=== PATIENT | male | born 1970 | race Caucasian/White ===

== ENCOUNTER 2016-09-07 17:00 | Emergency (ER) | payer MEDICARE, MEDICAID | END 2016-09-07 18:54 | disposition home or self-care (01) | LOC: D.ER 17:00 | DX: S93.402A Sprain of unspecified ligament of left ankle, initial encounter (principal); W22.8XXA Striking against or struck by other objects, initial encounter; Y93.89 Activity, other specified; Y92.017 Garden or yard in single-family (private) house as the place of occurrence of the external cause ==

== ENCOUNTER 2016-09-20 12:08 | Emergency (ER) | payer MEDICARE, MEDICAID | END 2016-09-20 14:45 | disposition home or self-care (01) | LOC: D.ER 12:08 | DX: S86.911A Strain of unspecified muscle(s) and tendon(s) at lower leg level, right leg, initial encounter (principal); Y93.61 Activity, american tackle football; Y92.89 Other specified places as the place of occurrence of the external cause; I10 Essential (primary) hypertension ==

== ENCOUNTER 2019-06-19 12:26 | Inpatient (IN) | payer MEDICARE, MEDICAID ==
[~2019-06-19] VITALS: Ht 182.9 cm; Wt 112.5 kg
--- NOTE | 2019-06-19 14:25 | NUR ---
RECIEVED FROM PRIVATE CAR TO REHAB ROOM [id number];ORIENTED TO ROOM AND SURROUNDINGS.CL IN REACH.
--- NOTE | 2019-06-19 16:00 | NUR ---
REMAINS UP IN WC.DENIES NEEDS.
[2019-06-19 17:19] LABS: APPEARANCE CLEAR (CLEAR); BILIRUBIN NEGATIVE (NEGATIVE); COLOR STRAW (YELLOW); GLUCOSE 1000 mg/dL (NEGATIVE); KETONE NEGATIVE (NEGATIVE); NITRITE NEGATIVE (NEGATIVE); PROTEIN 1+ mg/dL (NEGATIVE); SPECIFIC GRAVITY 1.015 (1.005-1.020); UROBILINOGEN NORMAL (NORMAL)
[2019-06-19 17:32] LABS: RED CELLS - URINE 0-5 /hpf (0-5); WHITE CELLS - URINE OCC /hpf (NEGATIVE)
[2019-06-19 19:58] VITALS: BP 171/81; BMI 33.7
--- NOTE | 2019-06-19 20:10 | NUR ---
GREETED PATIENT AND INTRODUCED MYSELF HIS NURSE. PATIENT IS LAYING IN BED RESTING AT THIS TIME. RESPIRATIONS EVEN. NO S/S OF DISTRESS. DENIES ANY FURTHER NEEDS AT THIS TIME. CALL LIGHT IN REACH.
[2019-06-19 21:32] VITALS: BP 149/74
--- NOTE | 2019-06-20 01:29 | NUR ---
PT. RESTING COMFORTABLY WATCHING TV. DENIES ANY NEEDS AT THIS TIME. CALL LIGHT IN REACH.
--- NOTE | 2019-06-20 04:31 | NUR ---
PT. LAYING IN BED WITH EYES OPEN PLAYING GAME ON PERSONAL CELL PHONE. DENIES ANY NEEDS AT THIS TIME. RESPIRATIONS EVEN. NO S/S OF DISTRESS. CALL LIGHT IN REACH.
[2019-06-20 06:22] LABS: BASOPHILS 0.4 % (0-2); HEMATOCRIT 23.1 % (42.0-54.0); HEMOGLOBIN 7.8 g/dL (13.5-17.5); LYMPHOCYTES 42.2 % (15-50); MCH 33.1 pg (26.0-34.0); MCHC 33.8 g/dL (31.0-37.0); MCV 97.9 fL (80.0-100.0); MONOCYTES 11.6 % (2-11); NEUTROPHILS 37.8 % (40-80); PLATELET COUNT 121 10x3/uL (130-400); RBC 2.36 10x6/uL (4.20-6.10); RDW 12.7 % (11.5-14.5); WBC 2.5 10x3/uL (4.8-10.8)
[2019-06-20 06:59] LABS: ANION GAP 11.5 mmol/L (8-16); CALCIUM 8.6 mg/dL (8.5-10.1); CARBON DIOXIDE 25.7 mmol/L (21.0-32.0); CREATININE - SERUM 1.7 mg/dL (0.6-1.3); POTASSIUM - SERUM 4.2 mmol/L (3.5-5.1)
--- NOTE | 2019-06-20 08:00 | NUR ---
PATIENT IS ALERT/ORIENT. SITTING UP IN BED TO EAT BREAKFAST. CALL LIGHT WITHIN REACH. VOICES NO NEEDS AT THIS TIME. WILL CONTIUE WITH PLAN OF CARE
[2019-06-20 08:34] VITALS: BP 153/74
--- NOTE | 2019-06-20 10:10 | NUR ---
PATIENT IN REHAB ROOM. WROKING WITH PHYSICAL THERAPIST. SCHEDULED PAIN MEDICATION GIVEN.
--- NOTE | 2019-06-20 13:49 | NUR ---
PRN PAIN MEDICATION GIVEN PER PATIENT REQUEST FOR GROIN AND LOWER BACK PAIN
[2019-06-20 14:07] VITALS: Ht 182.9 cm; Wt 112.5 kg
--- NOTE | 2019-06-20 15:31 | NUR ---
PATIENT NAUSEATE. VOMITTED ABOUT 200CC OF UNDIGESTED FOOD. PRN ZOFRAN GIVEN
--- NOTE | 2019-06-20 20:00 | NUR ---
PATIENT RECEIVED SITTING UP IN BED WATCHING TV. ASSESSMENT & VITAL SIGNS DONE. BED LOW. ALARM ON. WILL CONTINUE TO MONITOR.
[2019-06-20 21:12] VITALS: BP 158/75
--- NOTE | 2019-06-21 02:13 | NUR ---
I have reviewed this patient and I concur with the Shift Assessment completed by the Licensed Practical Nurse today this shift.
--- NOTE | 2019-06-21 03:30 | NUR ---
PATIENT EYES CLOSED. RESPIRATIONS 18 & EVEN. BED LOW. CALL LIGHT WITHIN REACH. WILL CONTINUE TO MONITOR.
[2019-06-21 08:00] VITALS: BP 163/81
[2019-06-21 08:36] LABS: HEMATOCRIT 23.6 % (42.0-54.0); HEMOGLOBIN 7.9 g/dL (13.5-17.5); MCH 32.6 pg (26.0-34.0); MCHC 33.5 g/dL (31.0-37.0); MCV 97.5 fL (80.0-100.0); MEAN PLATELET VOLUME 10.2 fL (7.4-10.4); PLATELET COUNT 127 10x3/uL (130-400); RBC 2.42 10x6/uL (4.20-6.10); RDW 12.6 % (11.5-14.5); WBC 2.8 10x3/uL (4.8-10.8)
[2019-06-21 08:56] LABS: ANION GAP 8.7 mmol/L (8-16); CALCIUM 8.5 mg/dL (8.5-10.1); CARBON DIOXIDE 26.9 mmol/L (21.0-32.0); CREATININE - SERUM 1.4 mg/dL (0.6-1.3); POTASSIUM - SERUM 4.6 mmol/L (3.5-5.1)
[2019-06-21 11:02] LABS: EOSINOPHILS 5 % (0-7); LYMPHOCYTES 56 % (15-50); MONOCYTES 10 % (2-11); NEUTROPHILS 28 % (40-80); PLATELET ESTIMATE NORMAL
--- NOTE | 2019-06-21 16:46 | NUR ---
PATIENT ADMITTED TO REHAB FROM AN OUTSIDE FACILITY. DISCHARGE PLANS ARE FOR PATIENT TO RETURN HOME. WILL CONTINUE TO FOLLOW WITH PATIENT.
--- NOTE | 2019-06-21 17:54 | NUR ---
SITTING UP IN BED FOR SUPPER. FC PATENT AND DRAINING CLOUDY URINE. DENIES NEED TO HAVE BM YET. DENIES INCREASED PAIN. CALL LIGHT IN REACH
--- NOTE | 2019-06-21 20:00 | NUR ---
PT IS RESTING IN BED WITH EYES OPEN. ALERT AND ORIENTED X 3. DENIES ACUTE DISCOMFORT AT THIS TIME. PT ASSISTED UP TO BATHROOM AT THIS TIME. XXLARGE FORMED BM NOTED. BARTON CATH IS PATENT AND DRAINING TO A GRAVITY BAG. SR'S ARE UP X 3 IN BED. CALL LIGHT AND BEDSIDE TABLE ARE WITHIN EASY REACH.
--- NOTE | 2019-06-21 23:18 | NUR ---
PT IS RESTING QUIETLY IN BED WITH EYES CLOSED. RESPS ARE EVEN AND UNLABORED. NO ACUTE DISTRESS NOTED.
--- NOTE | 2019-06-22 02:17 | NUR ---
I have reviewed this patient and I concur with the Shift Assessment completed by the Licensed Practical Nurse today this shift.
--- NOTE | 2019-06-22 04:22 | NUR ---
RESTING IN BED WITH EYES CLOSED.
[2019-06-22 08:00] VITALS: BP 155/71
--- NOTE | 2019-06-22 16:06 | NUR ---
LAYING IN BED WATCHING TV. TREMORS NOTED TO BLE WITH MOVEMENT. DENIES INCREASED PAIN. CALL LIGHT IN REACH
--- NOTE | 2019-06-22 19:09 | NUR ---
PT IS RESTING IN BED WITH EYES OPEN. ALERT AND ORIENTED X 3. DENIES ACUTE PAIN OR DISCOMFORT AT THIS TIME. NO NEEDS VOICED. BARTON CATH IS PATENT AND DRAINING TO A GRAVITY BAG. SR'S ARE UP X 2 IN BED. CALL LIGHT AND BEDSIDE TABLE ARE WITHIN EASY REACH.
[2019-06-22 19:15] VITALS: BP 139/81
--- NOTE | 2019-06-22 21:46 | NUR ---
PT RESTING IN BED WITH EYES CLOSED. AWOKE EASILY TO VERBAL STIMULI. TOLERATED PM MEDS WITHOUT DIFFICULTY. NO NEEDS VOICED.
--- NOTE | 2019-06-22 22:33 | NUR ---
I have reviewed this patient and I concur with the Shift Assessment completed by the Licensed Practical Nurse today this shift.
--- NOTE | 2019-06-23 04:34 | NUR ---
QUIET HOURS. PT LYING IN BED SUPINE EYES CLOSED RESTING QUIETLY. RR EVEN AND UNLABORED. CL IN REACH
[2019-06-23 08:00] VITALS: BP 159/84
--- NOTE | 2019-06-23 13:46 | NUR ---
PAIN MEDS GIVEN REQUESTED AND ORDERED. C/O TO LOW BACK AND GROIN AREA. F/C PATENT WITH CLOUDY URINE. DENIES CONSTIPATION. APPETITE GOOD. DENIES N/V. TREMORS NOTED TO ALL EXTREMITIES. CALL LIGHT IN REACH
[2019-06-23 20:00] VITALS: BP 148/83
--- NOTE | 2019-06-23 21:32 | NUR ---
PT IS RESTING IN BED WATCHING TV. NO NEEDS VOICED.
--- NOTE | 2019-06-24 00:50 | NUR ---
I have reviewed this patient and I concur with the Shift Assessment completed by the Licensed Practical Nurse today this shift.
--- NOTE | 2019-06-24 03:44 | NUR ---
QUIET HOURS. PT LYING IN BED EYES CLOSED RESTING QUIETLY. RR EVEN AND UNLABORD. F/C PATENT FREE OF KINKS. CL IN REACH
[2019-06-24 07:54] VITALS: BP 148/76
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
[2019-06-24 14:14] LABS: BASOPHILS 4.1 % (0-2); EOSINOPHILS 6.4 % (0-7); HEMOGLOBIN 8.5 g/dL (13.5-17.5); IMMATURE GRANULOCYTES 8.5 % (0-5); MCH 32.7 pg (26.0-34.0); MCV 96.2 fL (80.0-100.0); MEAN PLATELET VOLUME 10.6 fL (7.4-10.4); MONOCYTES 13.1 % (2-11); NEUTROPHILS 35.9 % (40-80); PLATELET COUNT 129 10x3/uL (130-400); RDW 12.6 % (11.5-14.5); WBC 4.4 10x3/uL (4.8-10.8)
--- NOTE | 2019-06-24 15:05 | NUR ---
Nutrition Follow-up: Diet: Diabetic PO intake: ~83% average x last 9 meals recorded. Reports good appetite. Gave food preferences. Last BM: 06/22/19 x 2. Wt: 248# (06/20/19) Labs and nursing skin assessment reviewed. Significant meds: lantus, humalog. Continue current nutrition regimen. Will update food preferences. RD following.
[2019-06-24 15:42] LABS: ANION GAP 10.5 mmol/L (8-16); CALCIUM 8.5 mg/dL (8.5-10.1); CARBON DIOXIDE 29.3 mmol/L (21.0-32.0); CREATININE - SERUM 1.5 mg/dL (0.6-1.3); POTASSIUM - SERUM 4.8 mmol/L (3.5-5.1)
--- NOTE | 2019-06-24 20:30 | NUR ---
PT REFUSED A SHOWER THIS PM. HE STATED HE HAD ALREADY SPOKEN WITH OT, AND THEY WERE GOING TO DO IT IN THE AM.
[2019-06-24 21:12] VITALS: BP 172/92
--- NOTE | 2019-06-24 22:09 | NUR ---
PT IS RESTING IN BED WITH EYES CLOSED. NO ACUTE DISTRESS NOTED.
--- NOTE | 2019-06-25 00:17 | NUR ---
RESTING IN BED WITH EYES CLOSED.
--- NOTE | 2019-06-25 00:57 | NUR ---
QUIET HOURS. PT LYING IN BED EYES CLOSED RESTING QUIETLY. HOB 45 DEGREES. RR EVEN AND UNLABORED. CL IN REACH
--- NOTE | 2019-06-25 03:34 | NUR ---
I have reviewed this patient and I concur with the Shift Assessment completed by the Licensed Practical Nurse today this shift.
--- NOTE | 2019-06-25 04:35 | NUR ---
PT IS RESTING QUIETLY IN BED WITH EYES CLOSED. RESPS ARE EVEN AND UNLABORED. NO ACUTE DISTRESS NOTED.
--- NOTE | 2019-06-25 08:00 | NUR ---
[facility]ED.
[2019-06-25 08:27] VITALS: BP 155/91
--- NOTE | 2019-06-25 16:00 | NUR ---
WILL CONTINUE TO MONITOR
--- NOTE | 2019-06-25 19:35 | NUR ---
PT LYING IN BED. CL IN REACH. DENIES NEEDS AT THIS TIME. BED IN LOW SIDE RAILS X2. A/O X4. RESP EVEN AND UNLABORED. LUNGS CLEAR. BOWEL ACTIVE X4. BARTON INTACT. URINE WNL. WILL CONTINUE TO MONITOR.
[2019-06-25 21:36] VITALS: BP 108/92
--- NOTE | 2019-06-26 02:10 | NUR ---
PT LYING IN BED WATCHIN TV. CL IN REACH. DENIES NEEDS AT THIS TIME. PT STATES HE CANT SLEEP. WILL CONTINUE TO MONITOR.
[2019-06-26 06:40] LABS: ANION GAP 12.3 mmol/L (8-16); CALCIUM 8.2 mg/dL (8.5-10.1); CARBON DIOXIDE 25.1 mmol/L (21.0-32.0); CREATININE - SERUM 1.7 mg/dL (0.6-1.3); POTASSIUM - SERUM 4.4 mmol/L (3.5-5.1)
[2019-06-26 07:27] LABS: HEMATOCRIT 21.9 % (42.0-54.0); MCH 32.7 pg (26.0-34.0); MCHC 33.3 g/dL (31.0-37.0); MEAN PLATELET VOLUME 10.8 fL (7.4-10.4); PLATELET COUNT 144 10x3/uL (130-400); RBC 2.23 10x6/uL (4.20-6.10); RDW 12.9 % (11.5-14.5)
[2019-06-26 07:38] LABS: HEMOGLOBIN 7.3 g/dL (13.5-17.5); MCV 98.2 fL (80.0-100.0)
--- NOTE | 2019-06-26 08:00 | NUR ---
SHIFT ASSMT COMPLETED.BREAKFAST GIVEN.
[2019-06-26 08:34] VITALS: BP 138/82
[2019-06-26 09:58] LABS: EOSINOPHILS 4 % (0-7); LYMPHOCYTES 45 % (15-50); MONOCYTES 10 % (2-11); NEUTROPHILS 41 % (40-80); PLATELET ESTIMATE NORMAL; ROULEAUX OCC
--- NOTE | 2019-06-26 09:59 | NUR ---
NUTRITIION F/U SPOKE WITH PT RE:DIABETIC DIET. ENCOURAGED PT TO REDUCE # OF CARBOHYDRATES IN DIET. PT STATES HE WILL COMPLY. RD FOLLOWING
--- NOTE | 2019-06-26 16:00 | NUR ---
RESTING QUIETLY.JUST FINISHED SHOWER WITH OT.GETTING DRESSED.
--- NOTE | 2019-06-26 17:00 | NUR ---
CONSENT FOR BLOOD ON CHART.1ST UNIT GIVEN.
--- NOTE | 2019-06-26 19:45 | NUR ---
PT SITTING UP IN BED. CL IN REACH. FIRST UNIT OF BLOOD JUST FINISHED INFUSING. VITALS WNL. NO DISTRESS NOTED. NO S/S OF REACTION. BED IN LOW SIDE RAILS X2. A/O X4. RESP EVEN AND UNLABORED. WILL CONTINUE TO MONITOR.
--- NOTE | 2019-06-26 20:15 | NUR ---
SECOND UNIT OF BLOOD STARTED. NO REACTIONS NOTED. WCTM
[2019-06-26 20:18] VITALS: BP 166/94
--- NOTE | 2019-06-26 22:45 | NUR ---
SECOND UNIT OF BLOOD FINISHED INFUSING. WCTM
--- NOTE | 2019-06-26 23:30 | NUR ---
QUIET HOURS. PT LYING IN BED SUPINE EYES CLOSED RESTING QUIETLY. HOB 45 DEGREES. F/C PATENT FREE OF KINKS. RR EVEN AND UNLABORED. CL IN REACH.
--- NOTE | 2019-06-27 02:33 | NUR ---
I have reviewed this patient and I concur with the Shift Assessment completed by the Licensed Practical Nurse today this shift.
--- NOTE | 2019-06-27 02:40 | NUR ---
PT RESTING QUIETLY. CL IN REACH. NO DISTRESS NOTED WCTM
[2019-06-27 08:00] VITALS: BP 150/75
--- NOTE | 2019-06-27 08:21 | NUR ---
PT EATING BREAKFAST, DENIES NEEDS. WCTM.
--- NOTE | 2019-06-27 18:09 | NUR ---
PT EATING DINNER, DENIES NEEDS. WCTM.
--- NOTE | 2019-06-27 19:35 | NUR ---
PT LYING IN BED WATCHING TV. CL IN REACH. A/O X4. BED IN LOW SIDE RAILS X2. RESP EVEN AND UNLABORED. LUNGS DIMINISHED. BOWEL HYPOACTIVE X4. PT DENIES NEEDS AT THIS TIME. WILL CONTINUE TO MONITOR.
--- NOTE | 2019-06-27 19:35 | NUR ---
PT LYING IN BED WATCHING TV. CL IN REACH. DENIES NEEDS AT THIS TIME. BED IN LOW SIDE RAILS X2. A/O X4. RESP EVEN AND UNLABORED. BARTON INTACT. URINE WNL. LUNGS CLEAR. BOWEL ACTIVE X4. WILL CONTINUE TO MONITOR.
[2019-06-27 20:34] VITALS: BP 151/84
--- NOTE | 2019-06-28 00:53 | NUR ---
QUIET HOURS. PT LYING IN BED ON RIGHT SIDE EYES CLOSED RESTING QUIETLY. RR EVEN AND UNLABORED. F/C PATENT AND FREE OF KINKS. CL IN REACH
--- NOTE | 2019-06-28 02:10 | NUR ---
PT RESTING QUIETLY. CL IN REACH. NO DISTRESS NOTED. WCTM
--- NOTE | 2019-06-28 04:01 | NUR ---
I have reviewed this patient and I concur with the Shift Assessment completed by the Licensed Practical Nurse today this shift.
--- NOTE | 2019-06-28 06:32 | NUR ---
PT RESTING QUIETLY. FSBS 175 THIS AM. NO DISTRESS NOTED. WCTM
[2019-06-28 07:32] VITALS: BP 162/92
[2019-06-28 07:50] LABS: BASOPHILS 0.7 % (0-2); EOSINOPHILS 7.6 % (0-7); HEMATOCRIT 28.7 % (42.0-54.0); HEMOGLOBIN 9.6 g/dL (13.5-17.5); LYMPHOCYTES 38.5 % (15-50); MCH 32.1 pg (26.0-34.0); MCHC 33.4 g/dL (31.0-37.0); MEAN PLATELET VOLUME 10.8 fL (7.4-10.4); MONOCYTES 10.2 % (2-11); PLATELET COUNT 136 10x3/uL (130-400); RBC 2.99 10x6/uL (4.20-6.10); RDW 13.4 % (11.5-14.5)
[2019-06-28 08:11] LABS: ANION GAP 13.1 mmol/L (8-16); CALCIUM 8.5 mg/dL (8.5-10.1); CARBON DIOXIDE 23.4 mmol/L (21.0-32.0); CREATININE - SERUM 1.6 mg/dL (0.6-1.3); POTASSIUM - SERUM 4.5 mmol/L (3.5-5.1)
--- NOTE | 2019-06-28 09:10 | NUR ---
PT AM MEDS ADMINISTERED. PT DENIES NEEDS. WCTM.
--- NOTE | 2019-06-28 16:15 | NUR ---
PATIENT IS DOING WELL IN THERAPY. HIS TENTIVE DISCHARGE DATE IS 07/05/19. WILL CONTINUE TO FOLLOW WITH PATIENT
--- NOTE | 2019-06-28 18:07 | NUR ---
PT EATING DINNER, DENIES NEEDS. WCTM.
[2019-06-28 19:27] VITALS: BP 182/92
--- NOTE | 2019-06-28 19:51 | NUR ---
PT IS RESTING IN BED WITH EYES OPEN. ALERT AND ORIENTED X 3. DENIES ACUTE PAIN OR DISCOMFORT AT THIS TIME. NO NEEDS VOICED. VSS. RIGHT ARM SALINE LOCK NOTED. BARTON CATH PATENT AND DRAINING TO A GRAVITY BAG. SR'S ARE UP X 2 IN BED. CALL LIGHT AND BEDSIDE TABLE ARE WITHIN EASY REACH.
--- NOTE | 2019-06-28 21:42 | NUR ---
PT RESTING IN BED WATCHING TV. NO NEEDS VOICED.
--- NOTE | 2019-06-29 01:43 | NUR ---
I have reviewed this patient and I concur with the Shift Assessment completed by the Licensed Practical Nurse today this shift.
--- NOTE | 2019-06-29 04:39 | NUR ---
RESTING IN BED WITH EYES CLOSED.
--- NOTE | 2019-06-29 08:03 | NUR ---
PT SITTING UP IN BED EATING BREAKFAST, DENIES NEEDS. WCTM.
[2019-06-29 08:05] VITALS: BP 155/80
--- NOTE | 2019-06-29 19:25 | NUR ---
PATIENT RECEIVED SITTING UP IN BED WATCHING TV. ASSESSMENT & VITAL SIGNS DONE. NO C/O PAIN OR DISTRESS. BED LOW. CALL LIGHT WITHIN REACH. WILL CONTINUE TO MONITOR.
[2019-06-29 20:03] VITALS: BP 177/82
--- NOTE | 2019-06-29 23:45 | NUR ---
HTML WEB DEVELOPER PULLED VALIUM FOR PATIENTS ANXIETY. PATIENT GIVEN MEDICATION. BED LOW. CALL LIGHT WITHIN REACH. WILL CONTINUE TO MONITOR.
--- NOTE | 2019-06-30 03:05 | NUR ---
I have reviewed this patient and I concur with the Shift Assessment completed by the Licensed Practical Nurse today this shift.
--- NOTE | 2019-06-30 09:10 | NUR ---
PT AM MEDS ADMINISTERED. PT DENIES NEEDS. WCTM.
--- NOTE | 2019-06-30 17:30 | NUR ---
PT SITTING UP EATING DINNER, LASHONDA NEEDS. WCTM.
[2019-06-30 20:00] VITALS: BP 171/88
--- NOTE | 2019-06-30 21:46 | NUR ---
PT RESTING IN BED WITH EYES CLOSED.
--- NOTE | 2019-06-30 23:13 | NUR ---
I have reviewed this patient and I concur with the Shift Assessment completed by the Licensed Practical Nurse today this shift.
--- NOTE | 2019-07-01 00:50 | NUR ---
RESTING IN BED WITH EYES CLOSED.
--- NOTE | 2019-07-01 04:40 | NUR ---
RESTING IN BED WITH EYES CLOSED. NO DISTRESS NOTED.
--- NOTE | 2019-07-01 05:06 | NUR ---
PT AWOKEN AND OFFERED A SHOWER. HE INVITED ME TO LEAVE HIS ROOM WITH COLORFUL WORDS.
[2019-07-01 06:24] LABS: HEMATOCRIT 27.4 % (42.0-54.0); HEMOGLOBIN 9.2 g/dL (13.5-17.5); MCH 32.4 pg (26.0-34.0); MCHC 33.6 g/dL (31.0-37.0); MCV 96.5 fL (80.0-100.0); MEAN PLATELET VOLUME 10.7 fL (7.4-10.4); PLATELET COUNT 117 10x3/uL (130-400); RBC 2.84 10x6/uL (4.20-6.10); RDW 12.9 % (11.5-14.5); WBC 2.9 10x3/uL (4.8-10.8)
[2019-07-01 06:33] LABS: ANION GAP 9.8 mmol/L (8-16); CALCIUM 8.3 mg/dL (8.5-10.1); CARBON DIOXIDE 27.6 mmol/L (21.0-32.0); CREATININE - SERUM 1.5 mg/dL (0.6-1.3); POTASSIUM - SERUM 4.4 mmol/L (3.5-5.1)
[2019-07-01 07:55] VITALS: BP 142/75
[2019-07-01 08:41] LABS: BASOPHILS 1 % (0-2); EOSINOPHILS 5 % (0-7); LYMPHOCYTES 38 % (15-50); MONOCYTES 10 % (2-11); NEUTROPHILS 44 % (40-80)
[2019-07-01 08:45] LABS: ANISOCYTOSIS OCC; PLATELET ESTIMATE DECREASED; ROULEAUX OCC
--- NOTE | 2019-07-01 09:17 | NUR ---
PATIENT RESTING IN BED. WATCHING T.V. ALERT/ORIENT. VOICES NO NEEDS AT THIS TIME. WILL CONTINUE WITH PLAN OF CARE
--- NOTE | 2019-07-01 10:05 | NUR ---
I have reviewed this patient and I concur with the Shift Assessment completed by the Licensed Practical Nurse today this shift.
--- NOTE | 2019-07-01 12:00 | NUR ---
GLUCOSE LEVEL 90. HUMOLOG INSULIN HELD AT THIS TIME. PATIENT STATED THAT HE IS NOT GOING TO EAT LUNCH BECAUSE THE KITCHEN DID NOT GIVE HIM WHAT HE WANTED. PATIENT HAS A HAMBUGER, A PLATE OF VEGTABLES, AND MAC AND CHEESE. PATIENT STATED THAT HE ALSO WANTED TWO PLATES OF GRAPES AND SF JELLOW. PATIENT STATED THAT HE CALLED THE KITCHEN AND THAT THEY WOULD NOT BRING THESE ITEMS DUE TO TOO MANY CARBS
--- NOTE | 2019-07-01 12:56 | NUR ---
Nutrition Follow-up: Diet: Diabetic PO intake: 100% x all; patient was very upset with lunch tray. He had a cheeseburger, [id number], soup, and cracks (5 CHO choices/75gms). He had also ordered 2 servings of grapes and 2 servings of SF jello which was not sent. Patient states that he will not eat any of the trays from the kitchen anymore and states that he will order out all his meals from now on. Explained why all the foods that were ordered were not sent. Pt still very upset. Last BM= 06/30/19. Wt: 248# (06/20/19). Labs noted: BUN 29, Cr 1.5, Glu 141 (was 441 yesterday) Significant meds: lantus, humalog Nursing skin assessment: small open area to buttocks, reddened area left scrotum Continue current nutrition regimen. Explained diet order to patient. RD Following.
--- NOTE | 2019-07-01 13:30 | NUR ---
PATIENT ORDERED A FAMILY SIZE PIZZA FROM [employer] AND HAD IT DELIVERED TO HIS ROOM.
--- NOTE | 2019-07-01 19:35 | NUR ---
PT IS RESTING IN BED WITH EYES OPEN. ALERT AND ORIENTED X 3. DENIES ACUTE DISCOMFORT AT THIS TIME. NO NEEDS VOICED. NO COMPLAINT OF NAUSEA VOICED AT THIS TIME. BARTON CATH IS PATENT AND DRAINING CLEAR YELLOW URINE TO A GRAVITY BAG. SR'S ARE UP X 2 IN BED. CALL LIGHT AND BEDSIDE TABLE ARE WITHIN EASY REACH.
[2019-07-01 21:06] VITALS: BP 182/89
--- NOTE | 2019-07-01 21:59 | NUR ---
PT RESTING QUIETLY IN BED WITH EYES CLOSED. NO DISTRESS NOTED.
--- NOTE | 2019-07-01 22:19 | NUR ---
I have reviewed this patient and I concur with the Shift Assessment completed by the Licensed Practical Nurse today this shift.
--- NOTE | 2019-07-02 01:55 | NUR ---
RESTING IN BED WITH EYES CLOSED.
[2019-07-02 08:04] VITALS: BP 121/75
--- NOTE | 2019-07-02 09:15 | NUR ---
PT AM MEDS ADMINISTERED. PT DENIES NEEDS. WCTM.
--- NOTE | 2019-07-02 09:47 | NUR ---
PAGED DR MAGALLANES AT THIS TIME.
--- NOTE | 2019-07-02 10:07 | NUR ---
SPOKE TO DR MAGALLANES.
--- NOTE | 2019-07-02 19:49 | NUR ---
PATIENT RECEIVED SITTING UP IN BED. PATIENT NOTIFIED OF NPO AFTER MIDNIGHT PER DR. MAGALLANES. ASSESSMENT & VITAL SIGNS DONE. NO C/O PAIN OR DISTRESS AT THIS TIME. BED LOW. CALL LIGHT WITHIN REACH. WILL CONTINUE TO MONITOR.
[2019-07-02 21:29] VITALS: BP 153/88
--- NOTE | 2019-07-02 23:00 | NUR ---
PATIENT READ & SIGNED CONSENTS FOR EGD WITH [facility] ON 07/03/19. PROCEDURE TO BE PERFORMED BY DR. MAGALLANES.
--- NOTE | 2019-07-03 00:25 | NUR ---
PT. AWAKE AND WATCHING TV. RESPIRATIONS EVEN. NO S/S OF DISTRESS. SR UP X 2. BED IN LOWEST POSITION. DENIES ANY NEEDS AT THIS TIME. CALL LIGHT IN REACH.
--- NOTE | 2019-07-03 00:41 | NUR ---
I have reviewed this patient and I concur with the Shift Assessment completed by the Licensed Practical Nurse today this shift.
--- NOTE | 2019-07-03 02:51 | NUR ---
PATIENT EYES CLOSED. RESPIRATIONS 18 & EVEN. BARTON CATHETER PATENT & HAS YELLOW COLOR IN BAG. BED LOW. CALL LIGHT WITHIN REACH. WILL CONTINUE TO MONITOR.
--- NOTE | 2019-07-03 06:45 | NUR ---
CALLED GI LAB IN REGARDS OF PATIENT SURGERY TIME TODAY. THE ANSWER WAS DR. MAGALLANES HAD CLINIC UNTIL 430PM & 500PM. THIS NURSE CALLED DR. MAGALLANES ANSWER SERVICE ABOUT PATIENT NPO & HE IS DIABETIC TO CALL BACK WITH ORDERS FOR PATIENT DIET.
[2019-07-03 06:47] LABS: EOSINOPHILS 9.8 % (0-7); HEMATOCRIT 26.7 % (42.0-54.0); HEMOGLOBIN 8.9 g/dL (13.5-17.5); LYMPHOCYTES 45.1 % (15-50); MCH 32.2 pg (26.0-34.0); MCHC 33.3 g/dL (31.0-37.0); MCV 96.7 fL (80.0-100.0); MEAN PLATELET VOLUME 10.6 fL (7.4-10.4); MONOCYTES 5.1 % (2-11); PLATELET COUNT 122 10x3/uL (130-400); RBC 2.76 10x6/uL (4.20-6.10); RDW 12.8 % (11.5-14.5)
[2019-07-03 06:48] LABS: ANION GAP 11.7 mmol/L (8-16); CALCIUM 8.4 mg/dL (8.5-10.1); CARBON DIOXIDE 24.6 mmol/L (21.0-32.0); CREATININE - SERUM 1.4 mg/dL (0.6-1.3); POTASSIUM - SERUM 4.3 mmol/L (3.5-5.1)
--- NOTE | 2019-07-03 06:49 | NUR ---
DR. MAGALLANES RETURNED CALL. PATIENT TO HAVE CLEAR LIQUIDS & MEDICATIONS UNTIL 11 AM. EGD AFTER NOON. ORDERS NOTED.
--- NOTE | 2019-07-03 06:56 | NUR ---
KITCHEN CALLED SPOKE WITH SRIRAM. ORDER RECEIVED CLEAR LIQUID DIET UNTIL 11AM. PATIENT NOTIFIED.
--- NOTE | 2019-07-03 08:00 | NUR ---
PT RESTING IN BED. CLEAR LIQUID BREAKFAST DELIVERED. WCTM.
[2019-07-03 08:18] VITALS: BP 143/74
--- NOTE | 2019-07-03 13:14 | NUR ---
PT RESTING IN BED, DENIES NEEDS. WCTM.
--- NOTE | 2019-07-03 16:04 | NUR ---
PT IV RESTARTED TO RT UPPER ARM BY PHILLIP NARVAEZ WITH ULTRASOUND. PREOP PEPCID ADMINISTERED. PHARMACY CONTACTED FOR REGLAN AND LACTATED RINGERS AT 1530.
--- NOTE | 2019-07-03 16:43 | NUR ---
CARE TEAM MEETING: PATIENT IS PROGRESSING IN THERAPY . THERAPY STATES THAT HE IS IMPULSIVE. TENATIVE DISCHARGE DATE IS 07/05/19. WILL CONTINUE TO FOLLOW WITH PATIENT.
--- NOTE | 2019-07-03 16:50 | NUR ---
PT TAKEN FOR EGD.
--- NOTE | 2019-07-03 18:04 | NUR ---
PT BACK FROM EGD. PT LETHARGIC UPON ARRIVAL. DR MAGALLANES ORDERED DOUBLE PORTIONS D/T PT FSBS OF 70 IN OUTPATIENT. PT FSBS UP TO 90 BEFORE RETURNING. PT EATING DINNER NOW. NATHANIEL.
[2019-07-03 19:54] VITALS: BP 148/75
--- NOTE | 2019-07-03 19:54 | NUR ---
AWAKE AND ALERT. RESTING IN BED. EATING PIZZA. HAD EGD TODAY. SALINE LOCK INTACT TO RIGHT UPPER ARM. NO ACUTE DISTRESS NOTED. CALL LIGHT IN REACH.
--- NOTE | 2019-07-04 00:56 | NUR ---
SLEEPING WITH RESPIRATIONS UNLABORED. NO DISTRESS NOTED. CALL LIGHT IN REACH.
--- NOTE | 2019-07-04 02:47 | NUR ---
SLEEPING WITH RESPIRATIONS UNLABORED. NO DISTRESS NOTED. CALL LIGHT IN REACH.
--- NOTE | 2019-07-04 02:52 | NUR ---
AWAKE AND RESTING IN BED ON CELL PHONE. STATES HE JUST HASNT SLEPT MUCH. REQUESTED FAN BE PUT ON. NO ACUTE DISTRESS NOTED.
--- NOTE | 2019-07-04 05:14 | NUR ---
DOLEA NOW. BARTON PATENT. RESPIRATIONS UNLABORED. NO ACUTE CHANGES IN CONDITION THIS SHIFT. NO DISTRESS NOTED. CALL LIGHT IN REACH.
[2019-07-04 06:26] LABS: BASOPHILS 0.6 % (0-2); HEMATOCRIT 25.9 % (42.0-54.0); HEMOGLOBIN 8.7 g/dL (13.5-17.5); IMMATURE GRANULOCYTES 0.9 % (0-5); MCHC 33.6 g/dL (31.0-37.0); MCV 95.2 fL (80.0-100.0); MEAN PLATELET VOLUME 10.8 fL (7.4-10.4); MONOCYTES 8.4 % (2-11); NEUTROPHILS 43.1 % (40-80); PLATELET COUNT 114 10x3/uL (130-400); RBC 2.72 10x6/uL (4.20-6.10); RDW 12.8 % (11.5-14.5); WBC 3.5 10x3/uL (4.8-10.8)
[2019-07-04 08:00] VITALS: BP 145/77
[2019-07-04 12:44] LABS: ANION GAP 10.9 mmol/L (8-16); CALCIUM 8.8 mg/dL (8.5-10.1); CARBON DIOXIDE 24.2 mmol/L (21.0-32.0); CREATININE - SERUM 1.6 mg/dL (0.6-1.3); POTASSIUM - SERUM 4.1 mmol/L (3.5-5.1)
--- NOTE | 2019-07-04 17:45 | NUR ---
PT IV IN RT AC INFILTRATED. IT WAS DC/'D. RT FOREARM IV RESTARTED BY VASCULAR NURSE USING ULTRASOUND BUT TOO MUCH TIME HAD PASSED AND REST OF THE UNIT OF BLOOD WAS DISCARDED FOR SAFETY. NEW BAG (2 OF 2) WAS HUNG.
--- NOTE | 2019-07-04 20:00 | NUR ---
PATIENT RECEIVED SITTING UP IN BED WATCHING TV. ASSESSMENT & VITAL SIGNS DONE. PATIENT RIGHT LOWER ARM SWOLLEN FROM PREVIOUS IV THAT HAD INFILTRATED WHILE PATIENT RECEIVING BLOOD. LEFT ARM SWOLLEN WITH IV CATHETER IN PLACE. THIS NURSE REMOVED THE IV CATH & PLACED GAUZE BANDAGE OVER IV SITE. NO BLOOD FLOW WHEN CATH REMOVED. PLACED WARM WASHCLOTHES IN BAG OVER LEFT ARM. BED LOW. CALL LIGHT WITHIN REACH. WILL CONTINUE TO MONITOR.
[2019-07-04 20:17] VITALS: BP 144/80
--- NOTE | 2019-07-05 01:00 | NUR ---
I have reviewed this patient and I concur with the Shift Assessment completed by the Licensed Practical Nurse today this shift.
--- NOTE | 2019-07-05 04:17 | NUR ---
PATIENT AWAKE WATCHING TV. PATIENT REQUEST FOR ICE WATER & SHERBERT. BED LOW. CALL LIGHT WITHIN REACH. WILL CONTINUE TO MONITOR.
[2019-07-05 08:00] VITALS: BP 161/85
[2019-07-05 08:00] LABS: ANION GAP 13.7 mmol/L (8-16); CALCIUM 8.2 mg/dL (8.5-10.1); CARBON DIOXIDE 24.3 mmol/L (21.0-32.0); CREATININE - SERUM 1.7 mg/dL (0.6-1.3); HEMATOCRIT 24.2 % (42.0-54.0); HEMOGLOBIN 8.6 g/dL (13.5-17.5); MCHC 35.5 g/dL (31.0-37.0); MCV 92.7 fL (80.0-100.0); MEAN PLATELET VOLUME 10.3 fL (7.4-10.4); PLATELET COUNT 95 10x3/uL (130-400); RBC 2.61 10x6/uL (4.20-6.10); RDW 12.2 % (11.5-14.5); WBC 3.8 10x3/uL (4.8-10.8)
[2019-07-05 09:10] LABS: EOSINOPHILS 10 % (0-7); LYMPHOCYTES 29 % (15-50); MONOCYTES 9 % (2-11); NEUTROPHILS 51 % (40-80); PLATELET ESTIMATE DECREASED; PLATELET MORPHOLOGY GIANT PLTS PRESENT; ROULEAUX OCC
--- NOTE | 2019-07-05 18:38 | NUR ---
VASCULAR ACCESS NURSE PLACED A MIDLINE TODAY IN [facility] [place]MIN[place]. HE IS NOW RECIEVING HIS SECOND UNIT. NO S/S REACTION OR PROBLEMS NOTED.
--- NOTE | 2019-07-05 19:25 | NUR ---
PT LYING IN BED. CL IN REACH. 2ND UNIT OF BLOOD INFUSING AT THIS TIME. BED IN LOW SIDE RAILS X2. LUNGS CLEAR BOWEL ACTIVE X4. RESP EVEN AND UNLABORED. DENIES NEEDS AT THIS TIME. WILL CONTINUE TO MONITOR.
--- NOTE | 2019-07-05 20:45 | NUR ---
2ND UNIT OF BLOOD COMPLETED. VITALS WNL BP ELEVATED BUT IT HAS BEEN ELEVATED ALL DAY. NOTE LEFT FOR DOC DIXIE. PT IS ON BP MEDS AND IS NOT SYMPTOMATIC OTHER VITALS WNL. PT DOES NOT COMPLAIN OF SOB. LEFT UPPER ARM PICC FLUSHED AND SALINE LOCKED. WILL CONTINUE TO MONITOR. A/O X4. CL IN REACH.
[2019-07-05 21:16] VITALS: BP 183/104
--- NOTE | 2019-07-05 22:00 | NUR ---
BP WAS ELEVATED WHEN VITALS WERE CHECKED, RECHECKED 30 MIN LATER BP WAS 174/89 BETTER THEN BEFORE. PT IS ON 2 BP MEDS. NOTE LEFT FOR DOC DIXIE.
--- NOTE | 2019-07-06 02:19 | NUR ---
I have reviewed this patient and I concur with the Shift Assessment completed by the Licensed Practical Nurse today this shift.
[2019-07-06 07:10] LABS: CALCIUM 8.6 mg/dL (8.5-10.1); CARBON DIOXIDE 22.2 mmol/L (21.0-32.0); CREATININE - SERUM 1.7 mg/dL (0.6-1.3); POTASSIUM - SERUM 4.2 mmol/L (3.5-5.1)
[2019-07-06 08:00] VITALS: BP 150/81
[2019-07-06 08:30] LABS: BASOPHILS 0.3 % (0-2); EOSINOPHILS 8.9 % (0-7); HEMATOCRIT 30.1 % (42.0-54.0); HEMOGLOBIN 10.2 g/dL (13.5-17.5); LYMPHOCYTES 34.3 % (15-50); MCH 30.9 pg (26.0-34.0); MCHC 33.9 g/dL (31.0-37.0); MCV 91.2 fL (80.0-100.0); MEAN PLATELET VOLUME 10.2 fL (7.4-10.4); MONOCYTES 7.3 % (2-11); NEUTROPHILS 49.2 % (40-80); PLATELET COUNT 116 10x3/uL (130-400); RDW 15.8 % (11.5-14.5); WBC 3.7 10x3/uL (4.8-10.8)
--- NOTE | 2019-07-06 10:19 | NUR ---
LAYING IN BED RESTING QUIETLY. DENIES INCREASED PAIN OR NEEDS. F/C DRAINING CLOUDY YELLOW URINE. FINE TREMORS NOTED TO BUE. TEACHING ON HOW TO KEEP F/C AND PENIS MEATUS CLEAN. HE DECLINED TO HAVE DEMONSTRATION OF CLEANING TECHNIQUE DONE FOR F/C
--- NOTE | 2019-07-06 15:39 | NUR ---
LAYING IN BED WATCHING TV. DENIES NEEDS. CALL LIGHT IN REACH. DENIES VOIDING SO FAR SINCE NOON TODAY WHEN HE PULLED HIS OWN BARTON CATH OUT. HE STATED HE WAS TIRED OF IT AND IT WAS UNCOMFORTABLE. NO TRAUMA NOTED TO PT. HE STATED HE DEFLATED THE BALLOON IN THE CATH WITH ONE OF THE SYRINGES LEFT FROM HIS BLOOD INFUSION LAST PM.. HIS SISTER VISITED THIS AFTERNOON AND NURSE, PT AND SISTER HAD CONVERSATION ABOUT SAFETY AT HOME. PT LIMITATIONS, POOR FINE MOTOR SKILLS AND NEED FOR FSBS MONITORING AND OTHER ISSUES CONCERNING PT AND SISTER. HE TOOK TOOK SHOWER AND CHANGED CLOTHES. CALL LIGHT IN REACH
--- NOTE | 2019-07-06 18:13 | NUR ---
PT VOIDED 800CC CLEAR URINE INTO URINAL. DENIES PROBLEMS VOIDING OR FEELING LIKE HIS BLADDER IS NOT EMPTY.
--- NOTE | 2019-07-06 19:36 | NUR ---
PT SITTING UP IN BED WATCHING TV. CL IN REACH. DENIES NEEDS AT THIS TIME. BED IN LOW SIDE RAILS X2. LUNGS CLEAR. BOWEL ACTIVE X4. A/O X4. RESP EVEN AND UNLABORED. PT NO LONG HAS BARTON. WILL CONTINUE TO MONITOR.
[2019-07-06 20:47] VITALS: BP 160/95
--- NOTE | 2019-07-07 00:05 | NUR ---
QUIET HOURS. PT LYING IN BED EYES CLOSED RESTING QUIETLY. RR EVEN AND UNLABORED. CL IN REACH
--- NOTE | 2019-07-07 05:00 | NUR ---
PT RESTING QUIETLY. CL IN REACH. NO DISTRESS NOTED. WCTM
--- NOTE | 2019-07-07 05:59 | NUR ---
I have reviewed this patient and I concur with the Shift Assessment completed by the Licensed Practical Nurse today this shift.
[2019-07-07 08:00] VITALS: BP 179/100
--- NOTE | 2019-07-07 13:10 | NUR ---
HAS BEEN C/O ABOUT MEALS NOT BEING DELIVERED HE ORDERED THEM BUT HE OFTEN ASKS FOR MORE FOOD AND DRINKS. NURSE CONFRONTED PT ABOUT HIM SAYING A SALAD WAS NOT DELIVERED ON HIS TRAY TODAY AND HIS C/O ABOUT THAT. CLAIM EXAMINER VARIFIED FRESH SALAD WAS ON HIS MEAL TRAY TODAY. HE TOLD CLAIM EXAMINER HE DID NOT WANT SALAD JUST MORE POTATOE SOUP...NURSE AGAIN TRIED TO RE-EDUCATE PT ON DIABETIC DIET BUT PT REFUSED TO LISTEN OR STICK TO DIABETIC DIET ORDERED. CALL LIGHT IN REACH
--- NOTE | 2019-07-07 19:45 | NUR ---
PT SITTING UP IN BED WATCHING TV. CL IN REACH. DENIES NEEDS AT THIS TIME. BED IN LOW SIDE RAILS X2. LUNGS CLEAR. BOWEL ACTIVE X4. RESP EVEN AND UNLABORED. A/O X4. WILL CONTINUE TO MONITOR.
[2019-07-07 21:08] VITALS: BP 199/96
--- NOTE | 2019-07-07 23:11 | NUR ---
QUIET HOURS. PT SITTING UP IN BED WATCHING TV. DENIES ANY NEEDS OR PAIN. RR EVEN AND UNLABORED. CL IN REACH
--- NOTE | 2019-07-08 02:34 | NUR ---
PT LYING IN BED SUPINE EYES CLOSED RESTING COMFORTABLY. RR EVEN AND UNLABORED. CL IN REACH
[2019-07-08 07:31] VITALS: BP 120/58
[2019-07-08] MEDS ORDERED: COREG6.25 MG PO (08:28)
[2019-07-08] MEDS ORDERED: LIPITOR20 MG PO (08:28)
[2019-07-08] MEDS ORDERED: LISINOPRIL10 MG PO (08:28)
[2019-07-08] MEDS ORDERED: HYTRIN5 MG PO (08:28)
[2019-07-08] MEDS ORDERED: VALIUM5 MG PO (08:29)
[2019-07-08] MEDS ORDERED: NEURONTIN 400400 MG PO (08:29)
[2019-07-08] MEDS ORDERED: DULCOLAX10 MG/SUPP RC (08:29)
[2019-07-08] MEDS ORDERED: Lantus Insulin SC ×2 (08:30)
[2019-07-08] MEDS ORDERED: HUMALOG 30100 UNITS/ SC (08:30)
[2019-07-08] MEDS ORDERED: PROSCAR5 MG PO (08:30)
[2019-07-08] MEDS ORDERED: PROTONIX40 MG PO (08:30)
[2019-07-08] MEDS ORDERED: OXYCODONE HCL10 MG PO (08:31)
--- NOTE | 2019-07-08 09:13 | NUR ---
PATIENT DISCHARGING HOME TODAY . [facility] WILL PROVIDE THERAPY AT HOME. PATIENT CHOICE FORM (HANDOUT GIVEN WITH COMPARE DATA REVIEWED WITH PATIENT . PATIENT VOICED UNDERSTANDING ) AND [facility] FORMS SIGNED, COPY GIVEN TO PATIENT AND FILED IN CHART.DISCHARGE INSTRUCTIONS FAXED TO PCP, HOME HEALTH AND REVIEWED WITH PATIENT.
--- NOTE | 2019-07-08 09:39 | NUR ---
DR. PADRON 07/15/19 @ 10:30, [facility]
--- NOTE | 2019-07-08 10:30 | NUR ---
BROTHER HERE TO PICK PT UP FOR DC. PT DENIES NEEDING ANY MEDS CALLED IN TO PHARMACY. GAVE PT SCRIPTS. REVIEWED MEDS AND DC PLAN. HE DENIES ANY TROUBLE VOIDING OR HAVING BM'S. LEFT FLOOR IN WC
--- NOTE | 2019-07-08 10:34 | NUR ---
IV TO LUE DC WITH CATHETER INTACT. PRESSURE APPLIED, 2X2 AND OCCLUSIVE DSG APPLIED.
== END 2019-07-08 12:13 | disposition home health service (06) | DRG 95 ==
LOC: D.REHAB 12:26
PROVIDERS: Internal Medicine Gastroenterology; ADMIT Emergency Medicine; ATTEND Emergency Medicine
PROC: 0DJ08ZZ Inspection of Upper Intestinal Tract, Via Natural or Artificial Opening Endoscopic (ICD-10-PCS; principal; 2019-07-03 16:57)
PROC: 05HC33Z Insertion of Infusion Device into Left Basilic Vein, Percutaneous Approach (ICD-10-PCS; 2019-07-05)
PROC: B54NZZA Ultrasonography of Left Upper Extremity Veins, Guidance (ICD-10-PCS; 2019-07-05)
DX: G61.0 Guillain-Barre syndrome (principal); N39.0 Urinary tract infection, site not specified; K92.0 Hematemesis; N31.2 Flaccid neuropathic bladder, not elsewhere classified; E11.9 Type 2 diabetes mellitus without complications; E78.5 Hyperlipidemia, unspecified; I10 Essential (primary) hypertension; K29.70 Gastritis, unspecified, without bleeding; K21.0 Gastro-esophageal reflux disease with esophagitis; K29.80 Duodenitis without bleeding; D64.9 Anemia, unspecified